=== PATIENT | male | born 1990 | race Caucasian/White ===

== ENCOUNTER 2024-10-16 18:47 | Emergency (ER) | payer OTHER, SELFPAY ==
[2024-10-16 18:53] VITALS: BP 134/95
[2024-10-16 19:17] LABS: Hematocrit 43.4 % (39.0-52.0); Hemoglobin 15.9 g/dL (13.0-18.0); Mean Corp Hgb Conc. 36.6 g/dL (33.0-37.0); Mean Corpuscular Volume 81.7 fL (80.0-94.0); Nucleated Red Blood Cells % 0 % (-); Platelet Count 244 10^3/uL (130-400); Red Cell Dist. Width 12.3 % (11.5-14.5)
[2024-10-16 19:47] LABS: ALT (SGPT) 31 U/L (0-50); AST (SGOT) 27 U/L (17-59); Albumin 4.8 g/dl (3.5-5.0); Alkaline Phosphatase 57 U/L (38-126); Blood Urea Nitrogen 21 mg/dl (9-20); Calcium 10.1 mg/dl (8.4-10.2); Carbon Dioxide 24 mmol/L (22-30); Chloride 108 mmol/L (98-107); Glucose 98 mg/dl (70-99); Potassium 4.2 mmol/L (3.5-5.1); Sodium 140 mmol/L (135-145); Total Protein 7.9 g/dl (6.3-8.2); eGFR > 60.00
[2024-10-16 20:03] VITALS: BP 134/89
[2024-10-16 20:08] LABS: Troponin I < 0.012 ng/ml
--- NOTE | 2024-10-16 22:54 | ED.GENMED ---
History of Present Illness
General
Chief Complaint: Chest Pain
Source: patient
Exam Limitations: none
Time Seen by Provider: 10/16/24 20:47
Nursing documentation reviewed up to this point in time: agreed with
History of Present Illness
History of Present Illness:
Patient to ED with report of sudden onset of sharp left sided chest pain. Symptoms started approx 2 hours [employer]. No associated n/v/diaphoresis. No SOB, dizziness. No prior history of same. Patient reports pain with palpation to left ant. chest.
To ED accompanied by spouse. Pain began to resolve on way to ED. He is currently symptom free.
Past History
Past History
ED Past Medical History: None
ED Past Surgical History: None
Review of Systems
Review of Systems
Allergies reviewed?: Yes
All Other Systems: ROS reviewed and negative except as documented in HPI and ROS
Constitutional: Reports no symptoms
EENT: Reports no symptoms
Respiratory: Reports no symptoms
Cardiac: Reports chest pain
ABD/GI: Reports no symptoms
: Reports no symptoms
Musculoskeletal: Reports no symptoms
Skin: Reports no symptoms
Neurological: Reports no symptoms
Psychiatric: Reports no symptoms
Phy Exam
General Physical Exam
General Presentation: well appearing and no apparent distress
General age: appears stated age
General Skin: warm and dry
General Habitus: normal
General Mental: alert
Cardiovascular Exam
Cardiovascular Exam: regular rate/rhythm and no edema
Pulmonary Exam
Pulmonary Exam: lungs clear and no respiratory distress
Musculoskeletal Exam
Musculoskeletal Exam: full ROM and neuro vasc intact
Skin Exam
Skin Exam: normal color, warm/dry and no rash
Psychiatric Exam
Psychiatric Exam: normal mood/affect
Scores
Heart Score for Chest Pain Patients
STEMI patient?: No
History: Slightly or Non-Suspicious
ECG: Normal
Age: </= 45 years
Risk Factors: No Risk Factors
Troponin: </= Normal Limit
Heart Score for Chest Pain Patients: 0
Heart Score Risk: 2.5% MACE over next 6 weeks
Course
Orders/Labs/Results
Orders:
Orders
10/16/24 18:48
EKG [Electrocardiogram (*1)] Urgent
Reason for Study: Chest Pain
EKG- Treatment ONCE
10/16/24 19:08
Complete Blood Count/With Diff Urgent
Comprehensive Metabolic Panel Urgent
Troponin I Urgent
10/16/24 20:59
CR Chest - 2 Views Urgent
Comment:
Reason For Exam: pain
Abnormal Lab Results
10/16/24
19:08
Absolute Lymphs (auto) 3.6 H 10^3/uL
(1.2-3.4)
Chloride 108 H mmol/L
(98-107)
BUN 21 H mg/dl
(9-20)
10/16/24 19:08
10/16/24 19:08
Vital Signs
Initial and Last Documented VS:
Initial Vital Signs
Temp Pulse Resp BP Pulse Ox
98.3 F 99 18 134/95 97
10/16/24 18:53 10/16/24 18:53 10/16/24 18:53 10/16/24 18:53 10/16/24 18:53
Last Documented Vital Signs
Temp Pulse Resp BP Pulse Ox
98.3 F 84 15 134/89 97
10/16/24 18:53 10/16/24 20:29 10/16/24 20:15 10/16/24 20:03 10/16/24 20:15
*Radiology
Radiology exam reviewed: radiology read reviewed
*Pulse Oximetry
SaO2: 97
Oxygen Mode of Delivery: Room air
Patient hypoxic: no
*Critical Care Note
Total Time (30-74mins, 75-104mins- exclusive of procedures): Not Applicable
Update Note
Update Note:
Patient to ED for eval of chest pain [employer]. Pain resolved prior to evaluation. He has remained pain free in ED. No associated symptoms. Pain worse with palpation to chest. Labs, EKG, CXR reviewed. NO concerning finding on exam. EKG NSR, troponin
neg. Doubtful for ACS. Will discharge home, close followup with PCP. Given instructions on s/s to return to ED and he is agreeable toplan.
ED Attending Note
-
Portions of this chart may have been created with voice recognition software.� Occasional wrong word or��sound alike� substitutions may have occurred due to the inherent limitations of voice recognition software.
Discharge Plan
Departure
Patient Disposition: Home (Routine Discharge)
Date of Disposition: 10/16/24
Time of Disposition: 21:33
Patient with high blood pressure during this ER visit?: No
Condition: Good
Covid-19: Not Applicable
Discharge Problem:
Chest pain
Instructions: Chest Pain That Is Not Caused by the Heart (DC), Chest Pain PCP Follow Up
Activity Restrictions/Additional Instructions:
Return to the emergency department immediately for any changes in/worsening of your symptoms
Interventions
Interventions:
*Risk Screen - Suicide Last Done: 10/16/24 18:53
*General Assessment Last Done: 10/16/24 18:53
*Neglect/Abuse Screening Last Done: 10/16/24 18:53
*Nursing Disposition Last Done: 10/16/24 21:46
ED- Cardiac Assessment Last Done: 10/16/24 20:15
Discharge Date and Time
Discharge Date/Time: 10/16/24 21:46
Print Language: [id number]
== END 2024-10-16 21:46 | disposition home or self-care (01) ==
LOC: EMR 18:47
PROVIDERS: Emergency Medicine; EMERGENCY PHYSICIAN Emergency Medicine
DX: R07.89 Other chest pain (principal); Z88.5 Allergy status to narcotic agent
CPT/HCPCS: 99283; 71046; 80053; 84484; 85025; 93005